=== PATIENT | female | born 1995 | race Caucasian/White ===

== ENCOUNTER 2021-09-21 09:50 | Emergency (ER) | payer OTHER ==
[2021-09-21 09:58] VITALS: BP 104/67; PULSE 76; TEMP 98.5; BMI 29.2
[2021-09-21] MEDS ORDERED: DIPHTH,PERTUSS(ACELL),TET 0.5 ML DISP.SYRIN IM ONE ×2 (10:28→10:33)
[2021-09-21] MEDS ORDERED: RABIES IMMUNE GLOBULIN 300 UNITS/1 ML VIAL IM ONE (10:28)
[2021-09-21] MEDS ORDERED: RABIES VACCINE (PCEC)/PF 2.5 UNIT/VIAL IM ONE ×2 (10:28→10:32)
[2021-09-21] MEDS ORDERED: AMOX TR/POT CLAV 875MG/125MG TABLETS (FP) PO ONE (10:28)
[2021-09-21] MEDS ORDERED: AMOX TR/POT CLAV 875MG/125MG TABLETS (FP) ONE (10:32)
[2021-09-21] MEDS ORDERED: RABIES IMMUNE GLOBULIN 300 UNITS/1 ML VIAL ONE (10:33)
== END 2021-09-21 11:50 | disposition home or self-care (01) ==
LOC: FER 09:50
PROC: 3E0234Z Introduction of Serum, Toxoid and Vaccine into Muscle, Percutaneous Approach (ICD-10-PCS; principal; 2021-09-21)
PROC: 3E0234Z Introduction of Serum, Toxoid and Vaccine into Muscle, Percutaneous Approach (ICD-10-PCS; 2021-09-21)
PROC: 3E0234Z Introduction of Serum, Toxoid and Vaccine into Muscle, Percutaneous Approach (ICD-10-PCS; 2021-09-21)
DX: S61.451A Open bite of right hand, initial encounter (principal); W54.0XXA Bitten by dog, initial encounter
CPT/HCPCS: 73130-TC-RT-FY; 90375; 90471; 90675; 90715; 99284-25

== ENCOUNTER 2021-09-24 16:45 | Emergency (ER) | payer OTHER ==
[2021-09-24] MEDS ORDERED: RABIES VACCINE (PCEC)/PF 2.5 UNIT/VIAL IM ONE ×2 (16:55→16:57)
[2021-09-24 17:01] VITALS: BP 119/83; PULSE 88; TEMP 99.1; BMI 28.9
== END 2021-09-24 17:18 | disposition home or self-care (01) ==
LOC: FER 16:45
PROC: 3E023GC Introduction of Other Therapeutic Substance into Muscle, Percutaneous Approach (ICD-10-PCS; principal; 2021-09-24)
DX: S61.451A Open bite of right hand, initial encounter (principal); W54.0XXA Bitten by dog, initial encounter; Z20.3 Contact with and (suspected) exposure to rabies
CPT/HCPCS: 90675; 99283-25

== ENCOUNTER 2021-09-28 18:50 | Emergency (ER) | payer OTHER ==
[2021-09-28 19:00] VITALS: BP 103/60; PULSE 76; TEMP 98.3; BMI 29.2
[2021-09-28] MEDS ORDERED: RABIES VACCINE (PCEC)/PF 2.5 UNIT/VIAL IM ONE ×2 (19:36→19:38)
== END 2021-09-28 19:49 | disposition home or self-care (01) ==
LOC: FER 18:50
PROC: 3E023GC Introduction of Other Therapeutic Substance into Muscle, Percutaneous Approach (ICD-10-PCS; principal; 2021-09-28)
DX: S61.451A Open bite of right hand, initial encounter (principal); W54.0XXA Bitten by dog, initial encounter; Z20.3 Contact with and (suspected) exposure to rabies
CPT/HCPCS: 90675; 99283-25

== ENCOUNTER 2021-10-05 17:25 | Emergency (ER) | payer OTHER ==
[2021-10-05 17:36] VITALS: BP 110/72; PULSE 65; TEMP 98; BMI 29.2
[2021-10-05] MEDS ORDERED: RABIES VACCINE (PCEC)/PF 2.5 UNIT/VIAL IM ONE ×2 (17:50→18:00)
== END 2021-10-05 18:22 | disposition home or self-care (01) ==
LOC: FER 17:25
PROC: 3E0234Z Introduction of Serum, Toxoid and Vaccine into Muscle, Percutaneous Approach (ICD-10-PCS; principal; 2021-10-05)
DX: Z29.14 Encounter for prophylactic rabies immune globulin (principal)
CPT/HCPCS: 90471; 90675; 99284-25

== ENCOUNTER 2022-10-26 12:44 | Emergency (ER) | payer OTHER ==
[2022-10-26 13:17] VITALS: BP 108/74; PULSE 60; RESP 18; TEMP 98.6; BMI 29.2
[2022-10-26] MEDS ORDERED: PANTOPRAZOLE SODIUM 40 MG in SODIUM CHLORIDE 100 ML IVPB ONE (13:28)
[2022-10-26] MEDS ORDERED: ONDANSETRON 4 MG/2 ML VIAL IVPB ONE (13:28)
[2022-10-26] MEDS ORDERED: ACETAMINOPHEN 1000 MG/100 ML BAG IVPB ONE (13:29)
[2022-10-26] MEDS ORDERED: SODIUM CHLORIDE 1,000 ML IV STA (13:29)
[2022-10-26] MEDS ORDERED: ACETAMINOPHEN INJECTION 100 ML IVPB ONE (13:45)
[2022-10-26] MEDS ORDERED: PANTOPRAZOLE SODIUM 40 MG VIAL ONE (13:45)
[2022-10-26] MEDS ORDERED: ONDANSETRON 4 MG/2 ML VIAL ONE (13:45)
[2022-10-26 14:01] LABS: HEMATOCRIT 41.5 % (32.4-45.2); HEMOGLOBIN 14.1 G/dL (10.7-15.3); MCH 28.2 pg (25.7-33.7); MCHC 33.9 g/dl (32.0-36.0); MEAN CELL VOLUME 83.2 fl (80-96); MEAN PLT VOLUME 8.8 fl (7.5-11.1); RBC 4.99 10^6/uL (3.60-5.2); RDW 14.7 % (11.6-15.6); WHITE BLOOD COUNT 7.6 10^3/uL (4.0-10.8)
[2022-10-26 14:10] LABS: ALBUMIN 4.4 g/dl (3.4-5.0); BILIRUBIN,TOTAL 0.9 mg/dl (0.2-1); BLOOD UREA NITROGEN 8.5 mg/dl (7-18); CALCIUM 9.3 mg/dl (8.5-10.1); CREATININE 0.7 mg/dl (0.6-1.3); POTASSIUM 3.9 mmol/L (3.5-5.1); SGOT/AST 29.2 U/L (15-37); SGPT/ALT 49.4 U/L (7-52); TOT PROT 7.2 g/dl (6.4-8.2)
[2022-10-26 14:12] LABS: PLATELET ESTIMATE ADEQUATE
[2022-10-26 14:16] LABS: HCG,QUALITATIVE URINE Negative
[2022-10-26 15:17] LABS: EPITHELIAL CELLS MANY /hpf
== END 2022-10-26 16:52 | disposition home or self-care (01) ==
LOC: FER 12:44
PROC: 3E033GC Introduction of Other Therapeutic Substance into Peripheral Vein, Percutaneous Approach (ICD-10-PCS; principal; 2022-10-26)
PROC: 3E033NZ Introduction of Analgesics, Hypnotics, Sedatives into Peripheral Vein, Percutaneous Approach (ICD-10-PCS; 2022-10-26)
PROC: 3E033GC Introduction of Other Therapeutic Substance into Peripheral Vein, Percutaneous Approach (ICD-10-PCS; 2022-10-26)
PROC: 3E0337Z Introduction of Electrolytic and Water Balance Substance into Peripheral Vein, Percutaneous Approach (ICD-10-PCS; 2022-10-26)
DX: R10.13 Epigastric pain (principal); R11.0 Nausea; N39.0 Urinary tract infection, site not specified; R30.0 Dysuria
CPT/HCPCS: 36415; 74176-TC; 80053; 81003; 81015; 84703; 85027; 99284-25

== ENCOUNTER 2024-03-01 15:09 | Emergency (ER) | payer OTHER ==
[2024-03-01 15:38] VITALS: BP 113/68; PULSE 70; RESP 18; TEMP 98.1; BMI 29.2
[2024-03-01] MEDS ORDERED: ACETAMINOPHEN 325 MG TABLET (FP) ONE (15:55)
[2024-03-01] MEDS: ACETAMINOPHEN 325 MG TABLET (FP) PO ONE (15:57)
== END 2024-03-01 19:00 | disposition home or self-care (01) ==
LOC: FER 15:09
DX: S50.12XA Contusion of left forearm, initial encounter (principal); S09.90XA Unspecified injury of head, initial encounter; W22.8XXA Striking against or struck by other objects, initial encounter
CPT/HCPCS: 73090-TC-LT-FY; 99283-25